=== PATIENT | female | born 1945 | race Caucasian/White ===

== ENCOUNTER → 2020-03-22 08:50 | Outpatient (BNVA) | payer MEDICARE, OTHER, SELFPAY | PROVIDERS: Family Provider Family Medicine; Referring Provider Dermatology; Visit Provider Dermatology | DX: Z85.828 Personal history of other malignant neoplasm of skin (principal); L57.0 Actinic keratosis; D22.9 Melanocytic nevi, unspecified; L71.9 Rosacea, unspecified | CPT/HCPCS: 17000; 17003; 99203 ==

== ENCOUNTER 2020-05-30 08:53 | Outpatient (CLI) | payer MEDICARE, OTHER, SELFPAY ==
--- NOTE | 2020-05-30 08:56 | MM_ITS ---
WS: [id number] Bilateral screening digital mammogram, 05/30/2020 Clinical Data: SCREENING Comparison: 04/15/2018, 04/08/2016, 10/20/2012, 04/20/2012. Findings: The breast parenchymal pattern shows heterogeneous density. No spiculated masses or clustered calcif ications are seen. There are no secondary signs of carcinoma. MM/[place] [id number] Impression: 1. Negative bilateral mammogram unchanged. 2. Recommend annual screening mammograms. BIRADS: 1-Negative FOLLOW UP: 1 Year Follow-up The CAD inventory checker was used.
== END 2020-05-30 08:54 | disposition home or self-care (01) ==
LOC: RADSHAW 08:54
PROVIDERS: PCP Family Medicine; Visit Provider Family Medicine
DX: Z12.31 Encounter for screening mammogram for malignant neoplasm of breast (principal)
CPT/HCPCS: 77067

== ENCOUNTER 2021-03-21 09:25 | Outpatient (CLI) | payer MEDICARE, OTHER, SELFPAY ==
--- NOTE | 2021-03-21 09:37 | XR_ITS ---
WS: [id number] Right hip, AP and frog leg views, AP pelvis, 03/21/2021 Clinical Data: R HIP PAIN Comparison: None. Findings: No fractures or dislocations are seen. There is an acetabular lip of the right hip. There is a small cyst of the right femoral head along with a spur of the femoral head.. The left hip shows minimal spu rring of the acetabulum and of the left lateral femoral head. The soft tissues are not remarkable. Th e adjacent pelvis is normal. The SI joints and pubic symphysis are unremarkable. There is osteoarthritis of the L5 vertebral body. XR/XR hip RT 2-3V wo/w pel* [id number] Impression: 1 mild osteoarthritis of the right hip with acetabular spurring and, spurring o f the femoral head in a cyst of the femoral head. 2. Mild osteoarthritis of the left hip. Tonnis classification: grade 1: sclerosis of femoral head and acetabulum or sli ght joint space narrowing or slight lipping at joint margins of the right hip
--- NOTE | 2021-03-21 09:37 | XR_ITS ---
WS: [id number] Lumbar spine, 3 views, 03/21/2021 Clinical Data: R HIP PAIN Comparison: None. Findings: No compression fractures are seen. There is a 0.6 cm subluxation of L4 on L5. There is degenerative d isc narrowing at all lumbar levels. There is a minimal dextroscoliosis. There is osteoarthritic norman e involving all the lumbar vertebral bodies. The transverse processes and SI joints are normal. There is a large amount of fecal material throughout the colon. XR/XR lumbar spine 2-3V* [id number] Impression: 1. Degenerative disc narrowing at all lumbar levels with a minimal dextroscolio sis and osteoarthritic change of the vertebral bodies. 2. Subluxation of 0.6 cm of L4 on L5.
== END 2021-03-21 09:26 | disposition home or self-care (01) ==
LOC: RAD 09:32
PROVIDERS: PCP Family Medicine; Visit Provider Family Medicine
DX: S33.140A Subluxation of L4/L5 lumbar vertebra, initial encounter (principal); X58.XXXA Exposure to other specified factors, initial encounter; M16.0 Bilateral primary osteoarthritis of hip
CPT/HCPCS: 72100; 73502

== ENCOUNTER 2021-04-10 14:26 | Outpatient (CLI) | payer MEDICARE, OTHER, SELFPAY ==
--- NOTE | 2021-04-10 14:38 | XR_ITS ---
WS: [id number] SCREENING DEXA SCAN [place] CLINICAL INFORMATION: POSTMENOPAUSAL COMPARISON: 2015 FINDINGS: The L1-L4 bone mineral density measures 1.025 g/cm2. This corresponds to a T score score of -1.3 and Z score of 0.9. Left femoral neck bone mineral density measures 0.746 g/cm2. This corresponds to a T score of -2.1 an d Z score of -0.1. Right femoral neck bone mineral density measures 0.738 g/cm2. This corresponds to a T score -2.1of an d Z score of -0.2. Mean femoral neck bone mineral density measures 0.742 g/cm2. This corresponds to a T score of -2.1 an d Z score of -0.2. XR/XR DEXA axial skeleton* [id number] IMPRESSION: Osteopenia. Patient's FRAX calculated 10 year probability for major osteoporotic fracture is 11.8 % and osteoporotic hip fracture is 10%.
== END 2021-04-10 14:27 | disposition home or self-care (01) ==
PROVIDERS: PCP Family Medicine; Visit Provider Family Medicine
DX: Z13.820 Encounter for screening for osteoporosis (principal); M85.80 Other specified disorders of bone density and structure, unspecified site; Z78.0 Asymptomatic menopausal state
CPT/HCPCS: 77080

== ENCOUNTER 2022-11-04 14:03 | Outpatient (CLI) | payer MEDICARE, SELFPAY ==
--- NOTE | 2022-11-04 14:58 | MR_ITS ---
WS: [id number] MRI LUMBAR SPINE NONCONTRAST HISTORY: LUMBAR SPONDYLOSIS, extreme back pain. COMPARISON: None available. TECHNIQUE: Sagittal and axial multisequence imaging is submitted. Mild degenerative disc disease of the cervical and thoracic spines. Very mild anterior wedging of T7. Increase in thoracic kyphosis. Central disc protrusion at T7-8 with mild deformity the ventral thora cic cord. Degenerative rotoscoliosis and RIGHT curvature lumbar spine. L4 anterolisthesis by 6.8 mm. Reactive m arrow edema in the adjacent endplates of L3 and L4. Disc spaces are significantly desiccated and narrowed throughout the lumbar spine. Conus terminates normally at L1. L1-L2: L1 retrolisthesis by 2 mm. Moderate annular disc bulging with encroachment upon the ventral th ecal sac. RIGHT paracentral disc protrusion extends inferior to the disc space. Mild central, bilater al subarticular recess and foraminal stenosis. L2-L3: Moderate annular disc bulging with encroachment upon the subarticular recesses and central can al. Osteophytic ridging. Bilateral foraminal disc protrusions. Moderate central, bilateral subarticul ar recess and foraminal stenosis. There is disc contact on the traversing L3 nerve roots and the RIGH T L2 exiting nerve root. L3-L4: Severe annular disc bulging with marked ligamentum flavum and facet arthritis. Deformity of th e thecal sac with near complete effacement of CSF. Disc bulging and probable protrusions along with o steophyte contributing to severe central, bilateral subarticular recess and LEFT foraminal stenosis. Moderate to severe RIGHT foraminal stenosis. There is marked contact on the L3 and L4 nerve roots. L4-L5: Marked annular disc bulging with severe ligamentum flavum and facet arthritis. Deformity of th e thecal sac by disc and facet disease. Severe central, bilateral subarticular recess and LEFT forami nal stenosis. Moderate to severe RIGHT foraminal stenosis. Most significant contact on the LEFT L4 an d L5 nerve roots. L5-S1: Severe annular disc bulging with a central disc protrusion and probable bilateral foraminal pr otrusions. Small disc protrusion contacts the RIGHT S1 nerve root. Moderate central with severe bilat eral subarticular recess and RIGHT foraminal stenosis. Moderate LEFT foraminal stenosis. Paravertebral soft tissues are negative. MR/MR lumbar spine wo con* [id number] IMPRESSION: 1. Severe degenerative rotoscoliosis and spondylosis throughout the lumbar spi ne with multiple levels of stenosis. 2. L4 anterolisthesis by 6.8 mm. 3. Severe central, bilateral subarticular recess and LEFT foraminal stenosis a t L3-4 with moderate to severe RIGHT foraminal stenosis. Marked encroachment up on the L3 and L4 nerve roots. 4. Severe central, bilateral subarticular recess and LEFT foraminal stenosis w ith moderate to severe RIGHT foraminal stenosis at L4-5. 5. Moderate central with severe bilateral subarticular recess and RIGHT forami nal stenosis and moderate LEFT foraminal stenosis at L5-S1. 6. Moderate central, bilateral subarticular recess and foraminal stenosis at L 2-3. 7. Mild central, bilateral subarticular recess and foraminal stenosis at L1-2.
== END 2022-11-04 14:04 | disposition home or self-care (01) ==
LOC: RAD 14:06
PROVIDERS: PCP Family Medicine; Visit Provider Electrodiagnostic Medicine
DX: M47.16 Other spondylosis with myelopathy, lumbar region (principal); M41.9 Scoliosis, unspecified; M48.061 Spinal stenosis, lumbar region without neurogenic claudication
CPT/HCPCS: 72148

== ENCOUNTER → 2023-04-16 14:58 | Outpatient (BNVA) | payer MEDICARE, SELFPAY | PROVIDERS: PCP Electrodiagnostic Medicine; Visit Provider Dermatology | DX: D48.5 Neoplasm of uncertain behavior of skin (principal); L57.0 Actinic keratosis; L57.8 Other skin changes due to chronic exposure to nonionizing radiation; D18.01 Hemangioma of skin and subcutaneous tissue; L11.1 Transient acantholytic dermatosis [Grover]; Z85.828 Personal history of other malignant neoplasm of skin | CPT/HCPCS: 11102; 17000; 99214 ==

== ENCOUNTER 2023-06-05 13:33 | Outpatient (CLI) | payer MEDICARE, SELFPAY ==
--- NOTE | 2023-06-05 13:40 | XR_ITS ---
WS: [id number] DEXA (DUAL ENERGY X-RAY ABSORPTIOMETRY) Bone mineral density was performed using a CHROMAom machine. HISTORY: POSTMENOPAUSAL COMPARISON: None available. Left forearm BMD: 0.533 g/cm2. T score: -3.9 Z score: -1.6 Total hip BMD: Left: 0.728 g/cm2. T score: -2.2 Z score: -0.2 Right: 0.735 g/cm2. T score: -2.2 Z score: -0.1 10 year probability of a major osteoporotic fracture is 13.4%. Compared to the prior study from 04/10/2021. Bilateral hips bone mineral density has decreased by 1.3%. IMPRESSION: OSTEOPOROSIS based upon the WHO classification for females. No significant change in bone mineral density within the hips since the prior study.
== END 2023-06-05 13:34 | disposition home or self-care (01) ==
LOC: RAD 13:34
PROVIDERS: PCP Electrodiagnostic Medicine; Visit Provider Electrodiagnostic Medicine
DX: Z78.0 Asymptomatic menopausal state (principal); M81.0 Age-related osteoporosis without current pathological fracture
CPT/HCPCS: 77080

== ENCOUNTER → 2023-08-25 13:41 | Outpatient (BNVA) | payer MEDICARE, SELFPAY | PROVIDERS: PCP Electrodiagnostic Medicine; Visit Provider Dermatology | DX: L57.0 Actinic keratosis (principal); L71.8 Other rosacea; Z85.828 Personal history of other malignant neoplasm of skin | CPT/HCPCS: 99214 ==

== ENCOUNTER → 2024-04-18 13:31 | Outpatient (BNVA) | payer MEDICARE, OTHER, SELFPAY | PROVIDERS: PCP Electrodiagnostic Medicine; Visit Provider Dermatology | DX: L71.8 Other rosacea (principal); L11.1 Transient acantholytic dermatosis [Grover]; L82.1 Other seborrheic keratosis; L57.0 Actinic keratosis; D18.01 Hemangioma of skin and subcutaneous tissue | CPT/HCPCS: 99214 ==